=== PATIENT | male | born 1955 | race Caucasian/White ===

== ENCOUNTER 2017-07-30 09:58 | Outpatient (CLI) | payer BC ==
[2017-07-30 17:58] LABS: BASOPHILS # (AUTO) 0.1 10^3/uL (0.0-0.1); BASOPHILS % (AUTO) 0.9 %; EOSINOPHILS # (AUTO) 0.2 10^3/uL (0.0-0.7); EOSINOPHILS % (AUTO) 1.9 %; HCT - HEMATOCRIT 47.5 % (42.0-52.0); HGB - HEMOGLOBIN 15.8 g/dL (14.0-18.0); LYMPHOCYTES # (AUTO) 4.1 10^3/uL (1.5-3.5); LYMPHOCYTES % (AUTO) 41.1 %; MEAN CORPUSCULAR HEMOGLOBIN 32.3 pg (27.0-31.0); MEAN CORPUSCULAR HGB CONC 33.2 g/dL (32.0-36.0); MEAN CORPUSCULAR VOLUME 97.3 fL (80.0-94.0); MEAN PLATELET VOLUME 8.3 fL (7.4-11.4); MONOCYTES # (AUTO) 0.7 10^3/uL (0.0-1.0); NEUTROPHILS # (AUTO) 4.9 10^3/uL (1.5-6.6); NEUTROPHILS % (AUTO) 49.1 %; RED BLOOD COUNT 4.88 10^6/uL (4.70-6.10); UNCORRECTED WHITE BLOOD COUNT 9.9 x10^3/uL; WHITE BLOOD COUNT 9.9 x10^3/uL (4.8-10.8)
[2017-07-30 18:20] LABS: ALBUMIN/GLOBULIN RATIO 1.3 (1.0-2.2); BILIRUBIN,TOTAL 0.5 mg/dL (0.2-1.0); BUN - BLOOD UREA NITROGEN 12 mg/dL (6-20); CALCIUM 9.3 mg/dL (8.5-10.3); CARBON DIOXIDE - CO2 24 mmol/L (21-32); CHLORIDE 106 mmol/L (101-111); CHOL/HDL RATIO 5.2 (<5.0); CHOLESTEROL 230 mg/dL; CREATININE 0.7 mg/dL (0.6-1.2); GFR - MDRD 115 (>89); GLUCOSE 105 mg/dL (70-100); HDL CHOLESTEROL 44 mg/dL; LDL/HDL RATIO 3.7 (<3.6); POTASSIUM 4.6 mmol/L (3.5-5.0); SODIUM 136 mmol/L (135-145); TOTAL PROTEIN 7.1 g/dL (6.7-8.2); TRIGLYCERIDES 110 mg/dL; VLDL CHOLESTEROL 22 mg/dL
== END 2017-07-30 09:59 | disposition home or self-care (01) ==
LOC: LAB.F 09:58
PROVIDERS: ATTEND Internal Medicine
DX: I25.10 Atherosclerotic heart disease of native coronary artery without angina pectoris (principal); E78.00 Pure hypercholesterolemia, unspecified
CPT/HCPCS: 36415; 80053; 80061; 84443; 85025

== ENCOUNTER 2017-10-21 14:01 | Outpatient (CLI) | payer BC ==
--- NOTE | 2017-10-21 16:25 | MRI Report ---
EXAM MRA BRAIN EXAM DATE: 10/21/2017 03:41 PM. CLINICAL HISTORY: Cerebral aneurysm, follow-up. COMPARISON: None. TECHNIQUE: Multiplanar, multisequence MRA sequences of the brain were performed. Other: None. Post-pr ocessing: Multiplanar 3D MIP reconstructions. IV Contrast: None. Findings: Relevant images are indicated (image number, series number). Left ICA: Patent including the MCA, DELANEY distribution. Right ICA: Patent including MCA, DELANEY distribution. Posterior circulation: Patent distal bilateral vertebral arteries, basilar artery, patent bilateral P CA distribution. Prominent right side, smaller left posterior communicating artery. Impressions: 1. Patent major arteries of the brain, with normal anatomical variability as described. No aneurysm, dissection, stenosis, AVM. Patient has reported history of aneurysm, none seen, no prior exams for co mparison. If prior exams do become available, an addendum can be added. [facility] Referring Provider Line: [phone] SITE ID: [id number]
== END 2017-10-21 14:02 | disposition home or self-care (01) ==
LOC: DI 14:01
PROVIDERS: ATTEND Physician Assistant Medical
DX: I67.1 Cerebral aneurysm, nonruptured (principal)
CPT/HCPCS: 70544

== ENCOUNTER 2019-02-10 11:25 | Outpatient (CLI) | payer BC ==
[2019-02-10 17:40] LABS: BASOPHILS # (AUTO) 0.1 10^3/uL (0.0-0.1); BASOPHILS % (AUTO) 1.2 %; EOSINOPHILS # (AUTO) 0.1 10^3/uL (0.0-0.7); HGB - HEMOGLOBIN 15.7 g/dL (14.0-18.0); LYMPHOCYTES # (AUTO) 3.4 10^3/uL (1.5-3.5); LYMPHOCYTES % (AUTO) 47.4 %; MEAN CORPUSCULAR HEMOGLOBIN 34.9 pg (27.0-31.0); MEAN CORPUSCULAR HGB CONC 33.7 g/dL (32.0-36.0); MEAN CORPUSCULAR VOLUME 103.7 fL (80.0-94.0); MEAN PLATELET VOLUME 8.8 fL (7.4-11.4); MONOCYTES # (AUTO) 0.5 10^3/uL (0.0-1.0); MONOCYTES % (AUTO) 6.3 %; NEUTROPHILS # (AUTO) 3.1 10^3/uL (1.5-6.6); NEUTROPHILS % (AUTO) 43.1 %; PLT - PLATELET COUNT 193 10^3/uL (130-450); RED CELL DISTRIBUTION WIDTH 13.9 % (12.0-15.0); WHITE BLOOD COUNT 7.3 x10^3/uL (4.8-10.8)
[2019-02-10 18:00] LABS: ALBUMIN 3.6 g/dL (3.2-5.5); ALBUMIN/GLOBULIN RATIO 1.1 (1.0-2.2); ALKALINE PHOSPHATASE 65 IU/L (42-121); ALT ALANINE AMINOTRANSFERASE 16 IU/L (10-60); AST ASPARTATE AMINOTRANSFERASE 22 IU/L (10-42); BILIRUBIN,TOTAL 0.5 mg/dL (0.2-1.0); BUN - BLOOD UREA NITROGEN 7 mg/dL (6-20); CALCIUM 8.4 mg/dL (8.5-10.3); CARBON DIOXIDE - CO2 24 mmol/L (21-32); CHLORIDE 108 mmol/L (101-111); CHOL/HDL RATIO 5.4 (<5.0); CHOLESTEROL 223 mg/dL; CREATININE 0.7 mg/dL (0.6-1.2); GFR - MDRD 115 (>89); GLUCOSE 103 mg/dL (70-100); HDL CHOLESTEROL 41 mg/dL; LDL CHOLESTEROL,CALCULATED 146 mg/dL; LDL/HDL RATIO 3.6 (<3.6); SODIUM 141 mmol/L (135-145); TOTAL PROTEIN 6.9 g/dL (6.7-8.2); VLDL CHOLESTEROL 36 mg/dL
== END 2019-02-10 11:26 | disposition home or self-care (01) ==
LOC: LAB.F 11:25
PROVIDERS: ATTEND Physician Assistant Medical
DX: E78.00 Pure hypercholesterolemia, unspecified (principal); Z51.81 Encounter for therapeutic drug level monitoring
CPT/HCPCS: 36415; 80053; 80061; 83721; 85025

== ENCOUNTER 2019-04-19 14:44 | Emergency (ER) | payer BC ==
[2019-04-19 14:54] VITALS: BP 165/85
--- NOTE | 2019-04-19 16:11 | ED Physician Documentation ---
PD HPI SKIN - Stated complaint Stated Complaint: BACK WOUND - Chief complaint Chief Complaint: Wound - History obtained from History obtained from: Patient - History of Present Illness Timing - onset: Last night Timing - details: Abrupt onset (he awoke with blood streaks on back of his tshirt. In mirror, he sees a small red spot on back but is in location to not be able to see it well. Concerned about the wound/cause for bleeding. Unable to get appt with PMD.) Location: Back Quality / character: Discolored (red). No: Itchy, Painful Associated symptoms: No: Fever, Myalgias Similar symptoms before: Has not had sx before Review of Systems Musculoskeletal: denies: Neck pain, Back pain PD PAST MEDICAL HISTORY - Past Medical History Cardiovascular: None Respiratory: None Neuro: None Endocrine/Autoimmune: None - Allergies Allergies/Adverse Reactions: Allergies Allergy/AdvReac Type Severity Reaction Status Date / Time No Known Drug Allergies Allergy Verified 04/19/19 14:53 PD ED PE NORMAL - Vitals Vital signs reviewed: Yes - General General: Alert and oriented X 3, No acute distress, Well developed/nourished - Derm Derm: Other (left scapular area has small skin lesion with mild local pinkness/redness, and some inflammation. No ulceration nor pigmentation of the skin. There is small clot on skin and when I brush it, there is drip venous oozing c/w small varicosity. No induration nor fluctuance. ) Results - Vitals Vitals: Vital Signs - 24 hr 04/19/19 14:51 Temperature 36.5 C Heart Rate 70 Respiratory 18 Rate Blood Pressure 165/85 H O2 Saturation 100 Oxygen O2 Source Room air PD MEDICAL DECISION MAKING - ED course Complexity details: considered differential (small area of some redness/ inflammation and had vein bleeding at that spot. No ulcerations nor pigment changes. Seems like inflammed varicosity or may have had small tag or such pull off. Does not look worrisome to need biopsy. Local injection with lido/epi and then silver nitrate stick and bleeding stopped. Cautioned him to have it looked at for healing in 1-2 weeks, and if still looks red/unusual skin, then consider biopsy.), d/w patient Departure - Departure Disposition: 01 Home, Self Care Clinical Impression: Skin lesion of back Condition: Stable Record reviewed to determine appropriate education?: Yes Comments: This looks like a small area of skin inflammation and then there was a small blood vessel underneath (like a varicosity or dilated blood vessel). It does not look like a worrisome lesion and there is no obvious sign of significant infection. I would just clean it with normal showers. You could use some ointment on there once or twice daily to keep it from being dry and hard. Recheck if is not healed over within a week or 2. Discharge Date/Time: 04/19/19 16:32
== END 2019-04-19 16:32 | disposition home or self-care (01) ==
LOC: ED 14:44
DX: L98.9 Disorder of the skin and subcutaneous tissue, unspecified (principal)
CPT/HCPCS: 99282

== ENCOUNTER 2020-03-13 16:49 | Emergency (ER) | payer BC ==
[2020-03-13 17:42] LABS: BASOPHILS # (AUTO) 0.1 10^3/uL (0.0-0.1); BASOPHILS % (AUTO) 0.7 %; EOSINOPHILS # (AUTO) 0.1 10^3/uL (0.0-0.7); EOSINOPHILS % (AUTO) 1.5 %; HGB - HEMOGLOBIN 14.9 g/dL (14.0-18.0); LYMPHOCYTES # (AUTO) 3.7 10^3/uL (1.5-3.5); LYMPHOCYTES % (AUTO) 40.8 %; MEAN CORPUSCULAR HEMOGLOBIN 33.7 pg (27.0-31.0); MEAN CORPUSCULAR HGB CONC 33.3 g/dL (32.0-36.0); MEAN CORPUSCULAR VOLUME 101.1 fL (80.0-94.0); MEAN PLATELET VOLUME 9.7 fL (7.4-11.4); MONOCYTES # (AUTO) 0.5 10^3/uL (0.0-1.0); MONOCYTES % (AUTO) 5.9 %; NEUTROPHILS # (AUTO) 4.6 10^3/uL (1.5-6.6); NEUTROPHILS % (AUTO) 50.6 %; PLT - PLATELET COUNT 180 10^3/uL (130-450); RED BLOOD COUNT 4.42 10^6/uL (4.70-6.10); RED CELL DISTRIBUTION WIDTH 13.2 % (12.0-15.0); WHITE BLOOD COUNT 9.2 x10^3/uL (4.8-10.8)
--- NOTE | 2020-03-13 17:46 | ED Physician Documentation ---
History of Present Illness - Stated complaint Stated Complaint: CP/LIGHTHEADED - Chief complaint Chief Complaint: Cardiac - History obtained from History obtained from: Patient - History of Present Illness Timing: How many weeks ago (1) Pain level max: 3 Pain level now: 3 - Additonal information Additional information: 64-year-old male presents to the emergency department with chest pain intermittently over the past week. He states sometimes it lasts for 10 to 15 seconds, other x2 to 3 minutes. Described as a tightness in his chest. He states that he has had a coronary angiogram in [facility] approximately 7 years ago that showed a 40% stenosis of the LAD. He followed up with a control panel assembler in [place] approximately 5 years ago, but has not seen anyone since that time. Nothing makes it better or worse. No change with exertion. No change with breathing. Review of Systems Ten Systems: 10 systems reviewed and negative Constitutional: denies: Fever, Chills Throat: denies: Sore throat Respiratory: denies: Cough GI: denies: Nausea, Vomiting Skin: denies: Rash Musculoskeletal: denies: Neck pain, Back pain Neurologic: denies: Headache PD PAST MEDICAL HISTORY - Past Medical History Cardiovascular: None Respiratory: None Neuro: None Endocrine/Autoimmune: None - Present Medications Home Medications: Ambulatory Orders Medication Instructions Recorded Confirmed diltiaZEM CD [Cardizem Cd] 120 mg PO DAILY #30 capsule 03/13/20 - Allergies Allergies/Adverse Reactions: Allergies Allergy/AdvReac Type Severity Reaction Status Date / Time No Known Drug Allergies Allergy Verified 04/19/19 14:53 - Social History Does the pt smoke?: No Smoking Status: Never smoker PD ED PE NORMAL - Vitals Vital signs reviewed: Yes - General General: Alert and oriented X 3, No acute distress, Well developed/nourished - HEENT HEENT: PERRL, Moist mucous membranes - Neck Neck: Supple, no meningeal sign - Cardiac Cardiac: RRR, No murmur, Strong equal pulses - Respiratory Respiratory: No respiratory distress, Clear bilaterally - Abdomen Abdomen: Soft, Non tender, Non distended - Derm Derm: Warm and dry - Neuro Neuro: Alert and oriented X 3 - Psych Psych: Normal mood, Normal affect Results - Vitals Vitals: Vital Signs - 24 hr 03/13/20 03/13/20 03/13/20 16:57 18:06 18:46 Temperature 36.4 C L 36.6 C Heart Rate 88 73 83 Respiratory 16 18 15 Rate Blood Pressure 140/86 H 132/81 H 134/80 H O2 Saturation 99 95 96 Oxygen O2 Source Room air - EKG (time done) 1650 Rate: Rate (enter#) (84) Rhythm: NSR [place]: Normal Intervals: Normal UT QRS: Normal Ischemia: Normal ST segments - Labs Labs: Laboratory Tests 03/13/20 03/13/20 03/13/20 17:34 17:34 17:34 WBC 9.2 RBC 4.42 L Hgb 14.9 Hct 44.7 MCV 101.1 H MCH 33.7 H MCHC 33.3 RDW 13.2 Plt Count 180 MPV 9.7 Neut # (Auto) 4.6 Lymph # (Auto) 3.7 H [place] # (Auto) 0.5 Eos # (Auto) 0.1 Baso # (Auto) 0.1 Absolute Nucleated RBC 0.00 Nucleated RBC % 0.0 Sodium 139 Potassium 3.6 Chloride 105 Carbon Dioxide 25 Anion Gap 9.0 BUN 10 Creatinine 0.6 Estimated GFR (MDRD) 137 Glucose 119 H Calcium 9.0 Total Bilirubin 0.4 AST 20 ALT 16 Alkaline Phosphatase 71 Troponin I High Sens < 2.3 L Total Protein 7.1 Albumin 3.7 Globulin 3.4 Albumin/Globulin Ratio 1.1 Lipase 34 - Rads (name of study) cxr Radiology: Prelim report reviewed, EMP read contemporaneously, See rad report (No acute disease) PD MEDICAL DECISION MAKING - ED course Complexity details: reviewed results, re-evaluated patient, considered differential (No ST elevation PR, no aortic dissection, no PE, no tension pneumothorax, no aortic aneurysm), d/w patient ED course: Patient symptoms were reproduced when he had a short run of paroxysmal atrial flutter. This terminated spontaneously. Likely that this is the cause of his symptoms. No evidence of acute coronary syndrome. No evidence of pulmonary embolus. We will start him on low-dose Cardizem. We will have him follow-up with cardiology for further care. Patient is well-appearing, nontoxic. Afebrile. Patient counseled regarding signs and symptoms for which I believe and urgent re-evaluation would be necessary. Patient with good understanding of and agreement to plan and is comfortable going home at this time This document was made in part using voice recognition software. While efforts are made to proofread this document, sound alike and grammatical errors may occur. Departure - Departure Disposition: 01 Home, Self Care Clinical Impression: Atrial flutter Qualifiers: Atrial flutter type: unspecified Qualified Code(s): I48.92 - Unspecified atrial flutter Condition: Good Instructions: ED Paroxysmal Atrial Flutter Follow-Up: Leila Hardy MD [Provider Admit Priv/Credential] - [facility] [Provider Group] [facility] [Provider Group] Prescriptions: diltiaZEM CD [Cardizem Cd] 120 mg PO DAILY #30 capsule Comments: Start on the Cardizem daily. Return if you worsen. Follow-up with your doctor for further care. You appear to have paroxysmal atrial flutter. You should continue on a baby aspirin daily as well. Discharge Date/Time: 03/13/20 18:57
[2020-03-13 17:55] LABS: ALBUMIN 3.7 g/dL (3.2-5.5); ALBUMIN/GLOBULIN RATIO 1.1 (1.0-2.2); BILIRUBIN,TOTAL 0.4 mg/dL (0.2-1.0); CREATININE 0.6 mg/dL (0.6-1.2); TOTAL PROTEIN 7.1 g/dL (6.7-8.2)
--- NOTE | 2020-03-13 18:19 | XRAY Report ---
Reason: Chest Pain Procedure Date: 03/13/2020 Accession Number: [id number] / [id number] Procedure: XR - Chest 1 View X-Ray CPT Code: 16996 Final Report FULL RESULT: PROCEDURE: Chest 1 View X-Ray INDICATIONS: Chest Pain TECHNIQUE: One view of the chest was acquired. COMPARISON: None FINDINGS: Surgical changes and devices: None. Lungs and pleura: No pleural effusions or pneumothorax. Lungs are clear. Mediastinum: Mediastinal contours appear normal. Heart size is normal. Bones and chest wall: No suspicious bony lesions. Overlying soft tissues appear unremarkable. IMPRESSION: No acute pulmonary process. Reviewed by: Jocelin Krishnamurthy MD on 03/13/2020 6:15 PM PDT Approved by: Jocelin Krishnamurthy MD on 03/13/2020 6:15 PM PDT Station ID: [id number]
[2020-03-13 18:47] VITALS: BP 134/80
== END 2020-03-13 18:57 | disposition home or self-care (01) ==
LOC: ED 16:49
DX: I48.92 Unspecified atrial flutter (principal)
CPT/HCPCS: 36415; 71045; 80053; 83690; 84484; 85025; 93005; 99284

== ENCOUNTER 2020-12-11 07:00 | Outpatient (CLI) | payer BC ==
--- NOTE | 2020-12-11 16:38 | XRAY Report ---
PROCEDURE: Ribs w/PA Chest RT INDICATIONS: ANTERIOR CHEST WALL PAIN TECHNIQUE: 3 views of the right ribs were acquired, along with a single view chest. COMPARISON: Chest x-ray 03/13/2020 FINDINGS: Surgical changes and devices: None. Bones and chest wall: No fractures or dislocations. No suspicious bony lesions. Overlying soft tis sues appear unremarkable. Lungs and pleura: No pleural effusions or pneumothorax. Lungs appear clear. Mediastinum: Mediastinal contours appear normal. Heart size is normal. IMPRESSION: No visualized acute fracture or dislocation. However, occult injury cannot be excluded. Recommend angy rt interval imaging follow-up in 7-10 days as clinically indicated for additional evaluation. Reviewed by: Jocelin Krishnamurthy MD on 12/11/2020 4:37 PM PST Approved by: Jocelin Krishnamurthy MD on 12/11/2020 4:37 PM PST Station ID: [id number]
== END 2020-12-11 23:59 | disposition home or self-care (01) ==
LOC: DI.S 07:00
PROVIDERS: ATTEND Physician Assistant Medical
DX: R07.89 Other chest pain (principal)

== ENCOUNTER 2024-02-09 20:40 | Outpatient (CLI) | payer MEDICARE, OTHER | END 2024-02-09 23:59 | disposition critical access hospital (66) | LOC: EMS 20:40 | DX: R55 Syncope and collapse (principal); S00.03XA Contusion of scalp, initial encounter; W18.39XA Other fall on same level, initial encounter; Y92.000 Kitchen of unspecified non-institutional (private) residence as the place of occurrence of the external cause | CPT/HCPCS: A0425; A0429 ==

== ENCOUNTER 2024-02-09 21:08 | Inpatient (IN) | payer MEDICARE, OTHER ==
[2024-02-09 21:50] LABS: BASOPHILS # (AUTO) 0.1 10^3/uL (0.0-0.1); BASOPHILS % (AUTO) 0.7 %; EOSINOPHILS # (AUTO) 0.1 10^3/uL (0.0-0.7); EOSINOPHILS % (AUTO) 0.6 %; HCT - HEMATOCRIT 43.3 % (42.0-52.0); HGB - HEMOGLOBIN 15.1 g/dL (14.0-18.0); LYMPHOCYTES # (AUTO) 3.2 10^3/uL (1.5-3.5); LYMPHOCYTES % (AUTO) 34.4 %; MEAN CORPUSCULAR HEMOGLOBIN 36.5 pg (27.0-31.0); MEAN CORPUSCULAR HGB CONC 34.9 g/dL (32.0-36.0); MEAN CORPUSCULAR VOLUME 104.6 fL (80.0-94.0); MEAN PLATELET VOLUME 10.5 fL (7.4-11.4); MONOCYTES # (AUTO) 0.9 10^3/uL (0.0-1.0); MONOCYTES % (AUTO) 9.2 %; NEUTROPHILS # (AUTO) 5.1 10^3/uL (1.5-6.6); NEUTROPHILS % (AUTO) 54.6 %; PLT - PLATELET COUNT 158 10^3/uL (130-450); RED BLOOD COUNT 4.14 10^6/uL (4.70-6.10); RED CELL DISTRIBUTION WIDTH 13.5 % (12.0-15.0); WHITE BLOOD COUNT 9.4 x10^3/uL (4.8-10.8)
[2024-02-09 22:05] LABS: ALBUMIN 4.3 g/dL (3.2-5.5); ALBUMIN/GLOBULIN RATIO 1.5 (1.0-2.2); BILIRUBIN,TOTAL 0.7 mg/dL (0.2-1.0); CALCIUM 9.6 mg/dL (8.5-10.3); CREATININE 0.7 mg/dL (0.6-1.3); MAGNESIUM 1.6 mg/dL (1.7-2.3); POTASSIUM 4.1 mmol/L (3.5-4.5); TOTAL PROTEIN 7.2 g/dL (6.4-8.9)
--- NOTE | 2024-02-09 22:12 | XRAY Report ---
PROCEDURE: Chest 1V INDICATIONS: syncope TECHNIQUE: One view of the chest was acquired. COMPARISON: Chest x-ray 03/13/2020 FINDINGS: Surgical changes and devices: None. Lungs and pleura: No pleural effusions or pneumothorax. Lungs are clear. Mediastinum: Mediastinal contours appear normal. Heart size is normal. Bones and chest wall: No suspicious bony lesions. Overlying soft tissues appear unremarkable. IMPRESSION: No acute cardiopulmonary process. Reviewed by: Jocelin Krishnamurthy MD on 02/09/2024 10:10 PM PDT Approved by: Jocelin Krishnamurthy MD on 02/09/2024 10:10 PM PDT Station ID: [id number]
--- NOTE | 2024-02-09 22:13 | CT Report ---
PROCEDURE: Head WO INDICATIONS: syncope/head injury TECHNIQUE: Noncontrast 4.5 mm thick angled axial sections acquired from the foramen magnum to the vertex. For r adiation dose reduction, the following was used: automated exposure control, adjustment of mA and/or kV according to patient size. COMPARISON: MRA brain 10/21/2017 FINDINGS: Image quality: Excellent. CSF spaces: Basal cisterns are patent. No extra-axial fluid collections. Ventricles are normal in size and shape. Brain: No midline shift. No intracranial masses or hemorrhage. Mcfarland-white matter interface is norm al. Skull and face: Calvarium and visualized facial bones are intact, without suspicious lesions. Sinuses: Visualized sinuses and mastoids are clear. IMPRESSION: No acute intracranial pathology. Reviewed by: Jocelin Krishnamurthy MD on 02/09/2024 10:11 PM PDT Approved by: Jocelin Krishnamurthy MD on 02/09/2024 10:11 PM PDT Station ID: [id number]
[2024-02-09] MEDS: SODIUM CHLORIDE 0.9% 1,000 ML IV STA (22:18)
[2024-02-09] MEDS: MAGNESIUM SULFATE 2 GRAM 2 GM/50 ML BAG IV ONE (22:34)
--- NOTE | 2024-02-09 22:48 | ED Physician Documentation ---
History of Present Illness - Stated complaint Stated Complaint: SYNCOPE - Chief complaint Chief Complaint: Cardiac - History obtained from History obtained from: Patient - Additonal information Additional information: Patient is a 68-year-old male with a history of atrial fibrillation presenting for evaluation of a syncopal episode. Patient states his evening he was walking in the hallway towards his laundry room and started to feel hot like a hot flash and went to take off his flannel shirt and get up in the laundry room. He then was turning around when he had a reported syncopal episode.The syncopal episode was not witnessed by anyone at home but he is concerned that he may have been out for an hour due to last remembering the start of a TV show and then waking up in the show was almost over. He did hit his head. He does not take a blood thinner. He does have a history of atrial fibrillation but had an ablation done for 5 years ago and has been in sinus rhythm since. He follows with a purchasing coordinator in [place] and had a cardiac catheterization in June which did not show any Vessel disease requiring stenting. Review of Systems Constitutional: denies: Fever Cardiac: denies: Chest pain / pressure, Palpitations Respiratory: denies: Dyspnea GI: denies: Abdominal Pain : denies: Dysuria Neurologic: reports: Syncope, Head injury PD PAST MEDICAL HISTORY - Past Medical History Cardiovascular: None Respiratory: None Neuro: None Endocrine/Autoimmune: None - Present Medications Home Medications: Ambulatory Orders Medication Instructions Recorded Confirmed diltiaZEM CD [Cardizem Cd] 120 mg PO DAILY #30 capsule 03/13/20 - Allergies Allergies/Adverse Reactions: Allergies Allergy/AdvReac Type Severity Reaction Status Date / Time No Known Drug Allergies Allergy Verified 02/09/24 21:20 - Social History Does the pt smoke?: No Smoking Status: Never smoker Does the pt drink ETOH?: Yes PD ED PE NORMAL - General General: Alert and oriented X 3, No acute distress, Well developed/nourished - HEENT HEENT: Atraumatic, Moist mucous membranes, Pharynx benign - Neck Neck: Supple, no meningeal sign, No bony TTP - Cardiac Cardiac: RRR, Strong equal pulses - Respiratory Respiratory: No respiratory distress, Clear bilaterally - Abdomen Abdomen: Normal bowel sounds, Soft, Non tender, Non distended - Derm Derm: Warm and dry - Extremities Extremities: No edema, No calf tenderness / cord - Neuro Neuro: Alert and oriented X 3, 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, No motor deficit, No sensory deficit, Normal speech Eye Opening: Spontaneous Motor: Obeys Commands Verbal: Oriented GCS Score: 15 Results - Vitals Vitals: Vital Signs - 24 hr 02/09/24 02/09/24 02/09/24 21:16 22:27 22:29 Temperature 36.8 C Heart Rate 80 74 Heart Rate [ 90 Sitting] Heart Rate [ 84 Standing] Heart Rate [ 78 Supine] Respiratory 16 16 Rate Blood Pressure 174/99 H 134/85 H Blood Pressure 137/86 H [Sitting] Blood Pressure 134/85 H [Standing] Blood Pressure 142/78 H [Supine] O2 Saturation 96 99 02/09/24 02/09/24 02/09/24 22:30 23:00 23:30 Temperature Heart Rate 72 76 81 Heart Rate [ Sitting] Heart Rate [ Standing] Heart Rate [ Supine] Respiratory 18 16 16 Rate Blood Pressure 136/86 H 159/97 H 148/82 H Blood Pressure [Sitting] Blood Pressure [Standing] Blood Pressure [Supine] O2 Saturation 98 96 94 02/10/24 02/10/24 00:00 01:00 Temperature Heart Rate 77 76 Heart Rate [ Sitting] Heart Rate [ Standing] Heart Rate [ Supine] Respiratory 16 19 Rate Blood Pressure 144/79 H 141/79 H Blood Pressure [Sitting] Blood Pressure [Standing] Blood Pressure [Supine] O2 Saturation 93 94 Oxygen O2 Source Room air - EKG (time done) 2134 EKG releavant findings:: EKG personally interpreted by author of this note. Relevant findings are: Rate 77, normal sinus rhythm, no STEMI, QTc 427 - Labs Labs: Laboratory Tests 02/09/24 02/09/24 21:35 21:35 WBC 9.4 RBC 4.14 L Hgb 15.1 Hct 43.3 MCV 104.6 H MCH 36.5 H MCHC 34.9 RDW 13.5 Plt Count 158 MPV 10.5 Neut # (Auto) 5.1 Lymph # (Auto) 3.2 [place] # (Auto) 0.9 Eos # (Auto) 0.1 Baso # (Auto) 0.1 Absolute Nucleated RBC 0.00 Nucleated RBC % 0.0 Sodium 139 Potassium 4.1 Chloride 107 Carbon Dioxide 23 Anion Gap 9.0 BUN 13 Creatinine 0.7 Estimated GFR (MDRD) 113 Glucose 103 Calcium 9.6 Magnesium 1.6 L Total Bilirubin 0.7 AST 25 ALT 17 Alkaline Phosphatase 67 Troponin I High Sens 3.0 Total Protein 7.2 Albumin 4.3 Globulin 2.9 Albumin/Globulin Ratio 1.5 Lipase 32 PD Medical Decision Making - ED course Complexity details: reviewed results, re-evaluated patient, d/w patient, d/w family ED course: Patient is a 68-year-old male presenting for evaluation of a syncopal episode and head injury. Normal neuroexam. Does not take a blood thinner. Vital signs are stable. CT head was obtained due to head injury and concern for prolonged syncope. No signs of intracranial hemorrhage. EKG demonstrates normal sinus rhythm. No STEMI. CBC, chemistries, troponin were obtained and reviewed and without significant findings other than a magnesium of 1.6. IV replacement was ordered. While patient was being evaluated he had an episode of bradycardia with heart rate down into the 30s and started feeling lightheaded and nauseous. He recovered without intervention. On review of the rhythm strip this appears to be sinus bradycardia and not a heart block. Discussed with on-call cardiology who recommends admission for telemetry. Does not see a reason for transfer at this time. 2257 - Son is at the bedside with his father and father gives permission to go over information with them both. 2306 - D/W Dr. Whitfield (Cardiology, manager action for Dr. Mcnair) - Recommends admission to telemetry here at our hospital. He is aware that we do not have any cardiology capabilities but states that is this was just an episode of bradycardia and was not a heart block then patient does not require transfer at this time. 1237 - Discussed with admitting hospitalist, Dr. Jasmine. Departure - Departure Disposition: ED Place in Observation Clinical Impression: Syncope, Head injury, Hypomagnesemia, Symptomatic bradycardia Condition: Stable Discharge Date/Time: 02/10/24 01:30
[2024-02-10] MEDS ORDERED: HYDROcod/ACETAM 5/325 MG TABLET PO PRN (01:04)
[2024-02-10] MEDS ORDERED: ONDANSETRON 4 MG/2 ML VIAL IVP PRN (01:04)
[2024-02-10] MEDS ORDERED: SODIUM CHLORIDE FLUSH 0.9% 10 ML SYRINGE IVP PRN (01:04)
[2024-02-10] MEDS ORDERED: ACETAMINOPHEN 325 MG TABLET PO PRN (01:04)
[2024-02-10] MEDS ORDERED: MAGNESIUM SULFATE 2 GRAM 2 GM/50 ML BAG IV ONE (01:08)
--- NOTE | 2024-02-10 01:16 | HISTORY & PHYSICAL EXAMINATION ---
Chief Complaint - Chief Complaint Chief Complaint: Syncope History of Present Illness - Admitted From Admitted From:: Home - History Obtained From Records Reviewed: Yes History obtained from: Patient and EMR and ED team Exam Limitations: None - History of Present Illness HPI Comment/Other: Patient is a 68-year-old male with a history of atrial fibrillation presenting for evaluation of a syncopal episode. Patient states his evening he was walking in the hallway towards his laundry room and started to feel hot like a hot flash and went to take off his flannel shirt and get up in the laundry room. He then was turning around when he had a reported syncopal episode.The syncopal episode was not witnessed by anyone at home but he is concerned that he may have been out for an hour due to last remembering the start of a TV show and then waking up in the show was almost over. He did hit his head. He does not take a blood thinner. He does have a history of atrial fibrillation but had an ablation done for 5 years ago and has been in sinus rhythm since. He follows with a spinneret person in [place] and had a cardiac catheterization in June which did not show any Vessel disease requiring stenting. 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 , states had had similar episode around 5 years ago after which he had ablation done, does complaint of nack pain and soreness found to have low Mg Very pleasant patient with no other complaints wants to sleep for few hours as feeling very tired, EKG review, CXR and labs reviewed he has been informed that I live in [place] and this is a telemedicine admission verbal consent obtained nd he is aware that he will be seen by my colleague in am History - Past Medical History Cardiovascular: reports: None Respiratory: reports: None Neuro: reports: None Endocrine/Autoimmune: reports: None MRSA Hx?: No Meds/Allgy - Home Medications Home Medications: Ambulatory Orders Medication Instructions Recorded Confirmed diltiaZEM CD [Cardizem Cd] 120 mg PO DAILY #30 capsule 03/13/20 - Allergies Allergies/Adverse Reactions: Allergies Allergy/AdvReac Type Severity Reaction Status Date / Time No Known Drug Allergies Allergy Verified 02/09/24 21:20 Review of Systems - Other Findings Other Findings: 14 system review done and negative except mentioned in HPI Prior Level of Functionality: Independent with ADL Exam - Vital Signs Vital Signs: Vital Signs x48h Temp Pulse Pulse Pulse Pulse Resp BP 02/10/24 00:00 77 16 144/79 H 02/09/24 23:30 81 16 148/82 H 02/09/24 23:00 76 16 159/97 H 02/09/24 22:30 72 18 136/86 H 02/09/24 22:29 90 84 78 02/09/24 22:27 74 16 134/85 H 02/09/24 21:16 36.8 C 80 16 174/99 H BP BP BP Pulse Ox 02/10/24 00:00 93 02/09/24 23:30 94 02/09/24 23:00 96 02/09/24 22:30 98 02/09/24 22:29 137/86 H 134/85 H 142/78 H 02/09/24 22:27 99 02/09/24 21:16 96 - Physical Exam General Appearance: positive: No acute distress Eyes Bilateral: positive: Normal inspection ENT: positive: Pharynx nml Neck: positive: Thyroid nml Respiratory: positive: Chest non-tender, Breath sounds nml Cardiovascular: positive: Regular rate & rhythm Back: positive: Nml inspection Skin: positive: Color nml Neurologic/Psychiatric: positive: Oriented x3, CN's nml (2-12) Sepsis Event Note (H) - Evaluation Current Stage of Sepsis: Ruled out Conclusion/Plan - Problem List (1) Head injury Conclusion/Plan: No open wound monitor for now pain meds (2) Syncope Conclusion/Plan: Likely vasovagal did have some bradycardia which as per Dr Dove was all sinus rafaela cardia Will place back on Telemetry Will likely need echo and carotid usg CT scan head is negative Will likely need night monitor as out patient Magneisum has been replaced EArly dc anitipated and follow up with Dr Cash his primar Cards at [place] on dc SCD for dct prophylaxis Full code Totalt time spent 55 mints - Lab Results Fish Bones: 02/09/24 21:35 02/09/24 21:35 - Diagnostic Imaging Results Diagnostic Imaging Results: positive: Final report reviewed - EKG Results EKG Comparison: Changed from prior EKG, Old EKG unavailable
[2024-02-10] MEDS: KETOROLAC 30 MG/ML VIAL IVP STA (02:04)
[2024-02-10] MEDS: SODIUM CHLORIDE FLUSH 0.9% 10 ML SYRINGE IVP SCH (02:05)
[2024-02-10] MEDS: SODIUM CHLORIDE 0.9% 1,000 ML IV SCH (02:11)
[2024-02-10 02:13] LABS: CHOL/HDL RATIO 5.3 (<5.0); CHOLESTEROL 231 mg/dL; HDL CHOLESTEROL 44 mg/dL; LDL CHOLESTEROL,CALCULATED 163 mg/dL; LDL/HDL RATIO 3.7 (<3.6); TRIGLYCERIDES 118 mg/dL (48-352); VLDL CHOLESTEROL 24 mg/dL
[2024-02-10 05:38] LABS: BASOPHILS # (AUTO) 0.1 10^3/uL (0.0-0.1); BASOPHILS % (AUTO) 0.7 %; EOSINOPHILS # (AUTO) 0.1 10^3/uL (0.0-0.7); EOSINOPHILS % (AUTO) 0.9 %; HCT - HEMATOCRIT 40.7 % (42.0-52.0); HGB - HEMOGLOBIN 13.8 g/dL (14.0-18.0); LYMPHOCYTES # (AUTO) 3.3 10^3/uL (1.5-3.5); LYMPHOCYTES % (AUTO) 39.4 %; MEAN CORPUSCULAR HEMOGLOBIN 35.8 pg (27.0-31.0); MEAN CORPUSCULAR HGB CONC 33.9 g/dL (32.0-36.0); MEAN CORPUSCULAR VOLUME 105.4 fL (80.0-94.0); MONOCYTES # (AUTO) 0.8 10^3/uL (0.0-1.0); NEUTROPHILS # (AUTO) 4.2 10^3/uL (1.5-6.6); NEUTROPHILS % (AUTO) 49.8 %; PLT - PLATELET COUNT 147 10^3/uL (130-450); RED BLOOD COUNT 3.86 10^6/uL (4.70-6.10); RED CELL DISTRIBUTION WIDTH 13.5 % (12.0-15.0); WHITE BLOOD COUNT 8.5 x10^3/uL (4.8-10.8)
[2024-02-10 05:55] LABS: ALBUMIN 3.5 g/dL (3.2-5.5); ALBUMIN/GLOBULIN RATIO 1.3 (1.0-2.2); BILIRUBIN,TOTAL 0.8 mg/dL (0.2-1.0); CALCIUM 8.3 mg/dL (8.5-10.3); CREATININE 0.7 mg/dL (0.6-1.3); POTASSIUM 3.9 mmol/L (3.5-4.5); TOTAL PROTEIN 6.1 g/dL (6.4-8.9)
--- NOTE | 2024-02-10 10:26 | PHARMACY PROGRESS NOTE ---
- Best Possible Medication History Admit Date and Time: 02/10/24 0105 Processed by: Pharmacy Medications reviewed in ED?: No Medication History completed: Yes Patient Interview: Completed Secondary Source(s): Insurance records As the person ultimately responsible for medication therapy, providers are able to order a medication from an existing home medication list in [facility] via the "Reconcile Routine" prior to Confirmation of that medication by legal support analyst. Such practice is discouraged except when the physician, in their clinical judgment, deems that a medical need exists for a medication without regard to previous use.
[2024-02-10] MEDS: diltiaZEM CD 120 MG CAPSULE PO SCH (10:42)
--- NOTE | 2024-02-10 15:47 | Ultrasound Report ---
PROCEDURE: Carotid Doppler Complete INDICATIONS: syncope TECHNIQUE: Color and pulse Doppler interrogation was performed of both carotid systems, with image documentation and velocity measurements. COMPARISON: None. FINDINGS: Right side: Brachial blood pressure: 110 mm Hg. Common carotid artery peak systolic velocity: 70 cm/sec. Internal carotid artery peak systolic velocity: 69 cm/sec. Internal carotid artery end diastolic velocity: 21 cm/sec. External carotid artery peak systolic velocity: 68 cm/sec. ICA/CCA peak systolic ratio: 0.99 . Mcfarland scale imaging description: Mild atherosclerotic plaque. Percent internal carotid artery stenosis: Less than 50 percent stenosis. Vertebral artery: Flow direction is antegrade. Left side: Brachial blood pressure: 127 mm Hg. Common carotid artery peak systolic velocity: 59 cm/sec. Internal carotid artery peak systolic velocity: 64 cm/sec. Internal carotid artery end diastolic velocity: 19 cm/sec. External carotid artery peak systolic velocity: 75 cm/sec. ICA/CCA peak systolic ratio: 1.1 . Mcfarland scale imaging description: Mild atherosclerotic plaque. Percent internal carotid artery stenosis: Less than 50 percent stenosis. Vertebral artery: Flow direction is antegrade. IMPRESSION: 1. In the right internal carotid artery, there is less than 50 percent stenosis based on peak systoli c velocity criteria. 2. In the left internal carotid artery, there is less than 50 percent stenosis based on peak systolic velocity criteria. 3. Antegrade blood flow within the right vertebral artery. 4. Antegrade blood flow within the left vertebral artery. The estimate of stenosis included in the report of the imaging study was calculated using the [facility]-end orsed standards of carotid artery stenosis. Reviewed by: Sandra Dumont MD on 02/10/2024 3:46 PM PDT Approved by: Sandra Dumont MD on 02/10/2024 3:46 PM PDT Station ID: [id number]
[2024-02-11 05:10] LABS: TROPONIN I HIGH SENSITIVITY 3.7 ng/L (2.3-19.7)
[2024-02-11 05:25] LABS: CALCIUM 9.2 mg/dL (8.5-10.3); CREATININE 0.6 mg/dL (0.6-1.3); MAGNESIUM 1.6 mg/dL (1.7-2.3); POTASSIUM 4.1 mmol/L (3.5-4.5)
--- NOTE | 2024-02-11 19:53 | PROVIDER PROGRESS NOTE ---
Assessment/Plan - Problem List (1) Bradycardia Assessment/Plan: Etiology of bradycardia is not clear. Patient had an episode of significant bradycardia last evening with a heart rate of 20-30 bpm. The rhythm was normal sinus rhythm. There appeared to be no heart block. Discussed with patient's heel sprayer at [facility] (Dr. Mcnair). All AV sonia blocking agents have been discontinued. If patient continues to have episodes of bradycardia/syncope after discontinuing all AV sonia blocking agents, he most likely will need a pacemaker. Discussed above with patient. (2) Syncope Assessment/Plan: Syncope most likely related to bradycardia. Continue to monitor on telemetry. (3) Hypomagesemia Assessment/Plan: Replacement - Current Meds Current Meds: Current Medications Generic Name Dose Route Start Last Admin Trade Name Freq PRN Reason Stop Dose Admin Sodium Chloride 1,000 mls @ 100 mls/hr 02/10/24 02:00 02/11/24 09:26 Normal Saline 0.9% IV Not Given .Q10H SAL Sodium Chloride 10 ml 02/10/24 09:00 02/11/24 10:41 Sodium Chloride Flush 0.9% 10 Ml Syringe IVP 10 ml 0100,0900,1700 SAL Administration - Lab Result Fish Bone Diagrams: 02/10/24 05:25 02/11/24 04:43 Subjective - Subjective Patient Reports: Other (Alert. Denies chest pain, shortness of breath, abdominal pain. Patient had an episode of bradycardia last night that resulted in lightheadedness. He has no other complaints at this time.) Objective Vital Signs: Vital Signs - 24 hr 02/10/24 02/10/24 02/10/24 21:00 22:00 23:30 Temperature 37.1 C 37.0 C Heart Rate [ 58 L Brachial] Heart Rate [ 66 61 Monitoring electrodes] Respiratory 18 18 Rate Blood Pressure 126/77 135/88 H 114/69 [Right Brachial artery] O2 Saturation 97 96 02/11/24 02/11/24 02/11/24 05:51 08:35 14:11 Temperature 36.8 C 37.0 C 36.8 C Heart Rate [ 60 65 Brachial] Heart Rate [ 64 Monitoring electrodes] Respiratory 18 16 16 Rate Blood Pressure 120/73 124/73 124/78 [Right Brachial artery] O2 Saturation 97 96 95 02/11/24 15:55 Temperature 37.1 C Heart Rate [ 62 Brachial] Heart Rate [ Monitoring electrodes] Respiratory 20 Rate Blood Pressure 132/73 H [Right Brachial artery] O2 Saturation 94 Oxygen O2 Source Room air I&O (Last 24 Hrs): Intake and Output Totals x24h 02/09/24 02/10/24 02/11/24 23:59 23:59 23:59 Intake Total 1050 3000 2040 Output Total 175 Balance 1050 2825 2040 General: Alert, Oriented x3, Mild distress Neck: Supple, No JVD Neuro: Alert, Non Focal Cardiovascular: Other (Positive S1-S2 no extra heart sounds.) Respiratory: Other (Good air exchange in all lung brothers no wheezing no crackles) Abdomen: Other (Soft nontender nondistended positive bowel sounds) Extremities: No cyanosis, No edema Skin: No rashes - Results Results: Laboratory Results WBC 8.5 x10^3/uL (4.8-10.8) 02/10/24 05:25 RBC 3.86 10^6/uL (4.70-6.10) L 02/10/24 05:25 Hgb 13.8 g/dL (14.0-18.0) L 02/10/24 05:25 Hct 40.7 % (42.0-52.0) L 02/10/24 05:25 MCV 105.4 fL (80.0-94.0) H 02/10/24 05:25 MCH 35.8 pg (27.0-31.0) H 02/10/24 05:25 MCHC 33.9 g/dL (32.0-36.0) 02/10/24 05:25 RDW 13.5 % (12.0-15.0) 02/10/24 05:25 Plt Count 147 10^3/uL (130-450) 02/10/24 05:25 MPV 10.0 fL (7.4-11.4) 02/10/24 05:25 Neut # (Auto) 4.2 10^3/uL (1.5-6.6) 02/10/24 05:25 Lymph # (Auto) 3.3 10^3/uL (1.5-3.5) 02/10/24 05:25 [place] # (Auto) 0.8 10^3/uL (0.0-1.0) 02/10/24 05:25 Eos # (Auto) 0.1 10^3/uL (0.0-0.7) 02/10/24 05:25 Baso # (Auto) 0.1 10^3/uL (0.0-0.1) 02/10/24 05:25 Absolute Nucleated RBC 0.00 x10^3/uL 02/10/24 05:25 Nucleated RBC % 0.0 /100WBC 02/10/24 05:25 Sodium 136 mmol/L (135-145) 02/11/24 04:43 Potassium 4.1 mmol/L (3.5-4.5) 02/11/24 04:43 Chloride 109 mmol/L (101-111) 02/11/24 04:43 Carbon Dioxide 20 mmol/L (21-32) L 02/11/24 04:43 Anion Gap 7.0 (6-13) 02/11/24 04:43 BUN 11 mg/dL (6-20) 02/11/24 04:43 Creatinine 0.6 mg/dL (0.6-1.3) 02/11/24 04:43 Estimated GFR (MDRD) 135 (>89) 02/11/24 04:43 Glucose 107 mg/dL (74-104) H 02/11/24 04:43 Calcium 9.2 mg/dL (8.5-10.3) 02/11/24 04:43 Phosphorus 3.0 mg/dL (2.5-5.0) 02/11/24 04:43 Magnesium 1.6 mg/dL (1.7-2.3) L 02/11/24 04:43 Total Bilirubin 0.8 mg/dL (0.2-1.0) 02/10/24 05:25 AST 20 IU/L (10-42) 02/10/24 05:25 ALT 14 IU/L (10-60) 02/10/24 05:25 Alkaline Phosphatase 55 IU/L (42-121) 02/10/24 05:25 Troponin I High Sens 3.7 ng/L (2.3-19.7) 02/11/24 04:43 Total Protein 6.1 g/dL (6.4-8.9) L 02/10/24 05:25 Albumin 3.5 g/dL (3.2-5.5) 02/10/24 05:25 Globulin 2.6 g/dL (2.1-4.2) 02/10/24 05:25 Albumin/Globulin Ratio 1.3 (1.0-2.2) 02/10/24 05:25 Triglycerides 118 mg/dL (48-352) 02/10/24 01:24 Cholesterol 231 mg/dL (-200) H 02/10/24 01:24 LDL Cholesterol, Calc 163 mg/dL (-129) H 02/10/24 01:24 VLDL Cholesterol 24 mg/dL 02/10/24 01:24 HDL Cholesterol 44 mg/dL (60-) L 02/10/24 01:24 LDL/HDL Ratio 3.7 (<3.6) 02/10/24 01:24 Cholesterol/HDL Ratio 5.3 (<5.0) 02/10/24 01:24 Lipase 32 U/L (11-82) 02/09/24 21:35 Sepsis Event Note (H) - Evaluation Current Stage of Sepsis: Ruled out
[2024-02-11] MEDS: MAGNESIUM OXIDE 400 MG TABLET PO SCH (21:35)
--- NOTE | 2024-02-12 21:43 | PROVIDER PROGRESS NOTE ---
Assessment/Plan - Problem List (1) Bradycardia Assessment/Plan: Etiology of bradycardia is not clear. It may be secondary to AV sonia blocking agents versus AV sonia dysfunction. Patient had an episode of significant bradycardia At approximately 1 AM that lasted approximately 20 seconds. The rhythm was sinus. He also had another event at approximately 5:19 am that lasted only several seconds. He has been off of the diltiazem for approximately 24 hours. Recommend he remain in the hospital for 1 more night for telemetry. If he does not have any events then he will be discharged to home. However, if he has significant events, plan is to call his commission for the blind director Dr. Mcnair and discuss the events. Discussed with patient's commission for the blind director at [facility] (Dr. Mcnair). All AV sonia blocking agents have been discontinued. If patient continues to have episodes of bradycardia/syncope after discontinuing all AV sonia blocking agents, he most likely will need a pacemaker. Discussed above with patient. (2) Syncope Assessment/Plan: Syncope most likely related to bradycardia. Continue to monitor on telemetry. (3) Hypomagesemia Assessment/Plan: Replacement - Current Meds Current Meds: Current Medications Generic Name Dose Route Start Last Admin Trade Name Freq PRN Reason Stop Dose Admin Magnesium Oxide 400 mg 02/11/24 21:00 02/12/24 20:14 Magnesium Oxide 400 Mg Tablet PO 02/14/24 20:59 400 mg BID SAL Administration Sodium Chloride 10 ml 02/10/24 09:00 02/12/24 16:23 Sodium Chloride Flush 0.9% 10 Ml Syringe IVP 10 ml 0100,0900,1700 SAL Administration - Lab Result Fish Bone Diagrams: 02/10/24 05:25 02/11/24 04:43 - Additional Planning My Orders: My Active Orders 02/11/24 21:00 Magnesium Oxide [Mag Ox] 400 mg PO BID Subjective - Subjective Patient Reports: Other (Alert. Denies syncope overnight. Denies chest pain shortness of breath and abdominal pain. Patient did have several episodes of bradycardia during the night.) Objective Vital Signs: Vital Signs - 24 hr 02/12/24 02/12/24 02/12/24 01:00 04:55 08:40 Temperature 36.5 C 36.6 C 36.6 C Heart Rate [ 63 Brachial] Heart Rate [ 67 63 Monitoring electrodes] Respiratory 20 18 18 Rate Blood Pressure 125/84 H 126/79 145/80 H [Right Brachial artery] O2 Saturation 95 97 96 02/12/24 02/12/24 02/12/24 12:29 15:37 20:04 Temperature 36.8 C 37.1 C 37.0 C Heart Rate [ 71 71 67 Brachial] Heart Rate [ Monitoring electrodes] Respiratory 18 16 16 Rate Blood Pressure 131/80 H 151/93 H 114/73 [Right Brachial artery] O2 Saturation 97 96 97 Oxygen O2 Source Room air I&O (Last 24 Hrs): Intake and Output Totals x24h 02/10/24 02/11/24 02/12/24 23:59 23:59 23:59 Intake Total 3000 2269 2059 Output Total 175 Balance 2825 2269 2059 General: Alert, Oriented x3, No acute distress HEENT: Atraumatic Neck: Supple, No JVD Neuro: Alert, Non Focal Cardiovascular: Other (Positive S1-S2 no extra heart sounds.) Respiratory: Other (Good air exchange in all lung brothers no wheezing no crackles.) Abdomen: Other (Positive bowel sounds soft nontender nondistended) Extremities: No cyanosis, No edema Skin: No rashes - Results Results: Laboratory Results WBC 8.5 x10^3/uL (4.8-10.8) 02/10/24 05:25 RBC 3.86 10^6/uL (4.70-6.10) L 02/10/24 05:25 Hgb 13.8 g/dL (14.0-18.0) L 02/10/24 05:25 Hct 40.7 % (42.0-52.0) L 02/10/24 05:25 MCV 105.4 fL (80.0-94.0) H 02/10/24 05:25 MCH 35.8 pg (27.0-31.0) H 02/10/24 05:25 MCHC 33.9 g/dL (32.0-36.0) 02/10/24 05:25 RDW 13.5 % (12.0-15.0) 02/10/24 05:25 Plt Count 147 10^3/uL (130-450) 02/10/24 05:25 MPV 10.0 fL (7.4-11.4) 02/10/24 05:25 Neut # (Auto) 4.2 10^3/uL (1.5-6.6) 02/10/24 05:25 Lymph # (Auto) 3.3 10^3/uL (1.5-3.5) 02/10/24 05:25 [place] # (Auto) 0.8 10^3/uL (0.0-1.0) 02/10/24 05:25 Eos # (Auto) 0.1 10^3/uL (0.0-0.7) 02/10/24 05:25 Baso # (Auto) 0.1 10^3/uL (0.0-0.1) 02/10/24 05:25 Absolute Nucleated RBC 0.00 x10^3/uL 02/10/24 05:25 Nucleated RBC % 0.0 /100WBC 02/10/24 05:25 Sodium 136 mmol/L (135-145) 02/11/24 04:43 Potassium 4.1 mmol/L (3.5-4.5) 02/11/24 04:43 Chloride 109 mmol/L (101-111) 02/11/24 04:43 Carbon Dioxide 20 mmol/L (21-32) L 02/11/24 04:43 Anion Gap 7.0 (6-13) 02/11/24 04:43 BUN 11 mg/dL (6-20) 02/11/24 04:43 Creatinine 0.6 mg/dL (0.6-1.3) 02/11/24 04:43 Estimated GFR (MDRD) 135 (>89) 02/11/24 04:43 Glucose 107 mg/dL (74-104) H 02/11/24 04:43 Calcium 9.2 mg/dL (8.5-10.3) 02/11/24 04:43 Phosphorus 3.0 mg/dL (2.5-5.0) 02/11/24 04:43 Magnesium 1.6 mg/dL (1.7-2.3) L 02/11/24 04:43 Total Bilirubin 0.8 mg/dL (0.2-1.0) 02/10/24 05:25 AST 20 IU/L (10-42) 02/10/24 05:25 ALT 14 IU/L (10-60) 02/10/24 05:25 Alkaline Phosphatase 55 IU/L (42-121) 02/10/24 05:25 Troponin I High Sens 3.7 ng/L (2.3-19.7) 02/11/24 04:43 Total Protein 6.1 g/dL (6.4-8.9) L 02/10/24 05:25 Albumin 3.5 g/dL (3.2-5.5) 02/10/24 05:25 Globulin 2.6 g/dL (2.1-4.2) 02/10/24 05:25 Albumin/Globulin Ratio 1.3 (1.0-2.2) 02/10/24 05:25 Triglycerides 118 mg/dL (48-352) 02/10/24 01:24 Cholesterol 231 mg/dL (-200) H 02/10/24 01:24 LDL Cholesterol, Calc 163 mg/dL (-129) H 02/10/24 01:24 VLDL Cholesterol 24 mg/dL 02/10/24 01:24 HDL Cholesterol 44 mg/dL (60-) L 02/10/24 01:24 LDL/HDL Ratio 3.7 (<3.6) 02/10/24 01:24 Cholesterol/HDL Ratio 5.3 (<5.0) 02/10/24 01:24 Lipase 32 U/L (11-82) 02/09/24 21:35 Sepsis Event Note (H) - Evaluation Current Stage of Sepsis: Ruled out
[2024-02-13 05:53] LABS: CALCIUM 9.7 mg/dL (8.5-10.3); CREATININE 0.8 mg/dL (0.6-1.3); MAGNESIUM 1.8 mg/dL (1.7-2.3); PHOSPHORUS 3.7 mg/dL (2.5-5.0); POTASSIUM 3.9 mmol/L (3.5-4.5)
--- NOTE | 2024-02-13 07:54 | DISCHARGE SUMMARY ---
Discharge Summary Admit Date: 02/10/24 Discharge Date: 02/13/24 Discharging Provider: Malcom Henderson MD Code Status: Attempt Resuscitation Discharge Disposition: 01 Home, Self Care Discharge Facility Name: [facility] - DIAGNOSES Admission Diagnoses: (1) Head injury (2) Syncope Discharge Diagnoses with Status of Each Condition: (1) Bradycardia (2) Syncope (3) Hypomagesemia - HPI History of Present Illness: History of Present Illness per Dr. Jasmine's history and physical: Patient is a 68-year-old male with a history of atrial fibrillation presenting for evaluation of a syncopal episode. Patient states his evening he was walking in the hallway towards his laundry room and started to feel hot like a hot flash and went to take off his flannel shirt and get up in the laundry room. He then was turning around when he had a reported syncopal episode.The syncopal episode was not witnessed by anyone at home but he is concerned that he may have been out for an hour due to last remembering the start of a TV show and then waking up in the show was almost over. He did hit his head. He does not take a blood thinner. He does have a history of atrial fibrillation but had an ablation done for 5 years ago and has been in sinus rhythm since. He follows with a fisher in [place] and had a cardiac catheterization in June which did not show any Vessel disease requiring stenting. 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 Alanis was admitted with a status of observation. He was placed on telemetry. He reports he had an cardiac ablation in approximately [address] Mcnair at [facility]. Upon admission, his metoprolol was discontinued and he continued on diltiazem CD1 120 mg daily. The patient continued to have several episodes of bradycardia with a heart rate in the 20-30/min range for brief periods of time. The rhythm during these events were sinus rhythm. The diltiazem was discontinued and the patient remained on telemetry. During the 24-hour period after discontinuing the diltiazem the patient the patient continued to have some episodes of bradycardia. During the next 24 hours when the medicine was completely out of his system he had no events of bradycardia. The patient is hemodynamically stable and is a safe for discharge. His case was discussed with Dr. Mcnair and [facility] and plan is for patient to follow-up with Dr. Mcnair. - ALLERGIES Allergies/Adverse Reactions: Allergies Allergy/AdvReac Type Severity Reaction Status Date / Time No Known Drug Allergies Allergy Verified 02/09/24 21:20 - MEDICATIONS Home Medications: Ambulatory Orders Medication Instructions Recorded Confirmed Aspirin EC [Ecotrin] 81 mg PO DAILY 02/10/24 02/10/24 Atorvastatin [Lipitor] 40 mg PO DAILY 02/10/24 02/10/24 - PHYSICAL EXAM AT DISCHARGE General Appearance: positive: No acute distress, Alert Eyes Bilateral: positive: No lid inflammation, Conjunctivae nml Respiratory: positive: No respiratory distress, Breath sounds nml Cardiovascular: positive: Regular rate & rhythm, No murmur, No gallop Abdomen: positive: Non-tender, Nml bowel sounds, No distention Skin: positive: No rash Neurologic/Psychiatric: positive: Oriented x3, Motor nml - LABS Result Diagrams: 02/10/24 05:25 02/13/24 05:15 - SEPSIS Current Stage of Sepsis: Ruled out - FOLLOW UP Follow Up: Please follow-up with Dr. Mcnair in 2 to 4 weeks. Please schedule a follow-up appointment with your primary care provider. - TIME SPENT Time Spent in Discharge (Minutes): 28
--- NOTE | 2024-02-13 07:54 | Discharge Plan ---
Discharge Plan Condition: Stable Diet: Regular Activity Restrictions: No Restrictions Shower Restrictions: No Driving Restrictions: No Instruction Topics: Bradycardia Health Concerns: History of Present Illness per Dr. Jasmine's history and physical: Patient is a 68-year-old male with a history of atrial fibrillation presenting for evaluation of a syncopal episode. Patient states his evening he was walking in the hallway towards his laundry room and started to feel hot like a hot flash and went to take off his flannel shirt and get up in the laundry room. He then was turning around when he had a reported syncopal episode.The syncopal episode was not witnessed by anyone at home but he is concerned that he may have been out for an hour due to last remembering the start of a TV show and then waking up in the show was almost over. He did hit his head. He does not take a blood thinner. He does have a history of atrial fibrillation but had an ablation done for 5 years ago and has been in sinus rhythm since. He follows with a whiteprinting machine operator in [place] and had a cardiac catheterization in June which did not show any Vessel disease requiring stenting. 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 Alanis was admitted with a status of observation. He was placed on telemetry. He reports he had an cardiac ablation in approximately [address] Mcnair at [facility]. Upon admission, his metoprolol was discontinued and he continued on diltiazem CD1 120 mg daily. The patient continued to have several episodes of bradycardia with a heart rate in the 20-30/min range for brief periods of time. The rhythm during these events were sinus rhythm. The diltiazem was discontinued and the patient remained on telemetry. During the 24-hour period after discontinuing the diltiazem the patient the patient continued to have some episodes of bradycardia. During the next 24 hours when the medicine was completely out of his system he had no events of bradycardia. The patient is hemodynamically stable and is a safe for discharge. His case was discussed with Dr. Mcnair and [facility] and plan is for patient to follow-up with Dr. Mcnair. Plan of Treatment: 1. Please take all medications as prescribed. 2. Please follow-up with Dr. Mcnair in the next 2 to 4 weeks. Please discuss home monitoring for bradycardia with Dr. Mcnair. 3. Please follow-up with your primary care provider Care Goals: Goal of care is to not have any more syncopal events or significant bradycardia. If syncope or bradycardia recurs, patient may require pacemaker placement. Assessment: (1) Bradycardia Assessment/Plan: Etiology of bradycardia is not clear. It may be secondary to AV sonia blocking agents versus AV sonia dysfunction. Patient had an episode of significant bradycardia At approximately 1 AM that lasted approximately 20 seconds. The rhythm was sinus. He also had another event at approximately 5:19 am that lasted only several seconds. He has been off of the diltiazem for approximately 24 hours. Recommend he remain in the hospital for 1 more night for telemetry. If he does not have any events then he will be discharged to home. However, if he has significant events, plan is to call his powerhouse mechanic apprentice Dr. Mcnair and discuss the events. Discussed with patient's powerhouse mechanic apprentice at [facility] (Dr. Mcnair). All AV sonia blocking agents have been discontinued. If patient continues to have episodes of bradycardia/syncope after discontinuing all AV sonia blocking agents, he most likely will need a pacemaker. Discussed above with patient. (2) Syncope Assessment/Plan: Syncope most likely related to bradycardia. After discontinuing diltiazem patient had several events of brief bradycardia during the 24 hours after discontinuing the medication. Over the next 24 hours with the medication should be completely out of the patient's system the patient had no events. (3) Hypomagesemia Assessment/Plan: Resolved No Smoking: If you smoke, Please STOP! Call for help. Follow-up with: LAILA BENITEZ MD [Primary Care Provider] -
[2024-02-13 08:29] VITALS: BP 125/74; O2SAT 98
== END 2024-02-13 10:15 | disposition home or self-care (01) | DRG 309 ==
LOC: EDUNIT# → ED 21:08 → MS2 02-10 01:05 → OBSVTOIN 02-12 12:30
PROVIDERS: ADMIT Internal Medicine; ATTEND Internal Medicine
DX: R00.1 Bradycardia, unspecified (principal); S06.9X9A Unspecified intracranial injury with loss of consciousness of unspecified duration, initial encounter; S09.90XA Unspecified injury of head, initial encounter; R55 Syncope and collapse; E83.42 Hypomagnesemia; I65.23 Occlusion and stenosis of bilateral carotid arteries; W19.XXXA Unspecified fall, initial encounter
CPT/HCPCS: 36415; 70450; 71045; 80048; 80053; 80061; 83690; 83735; 84100; 84484; 85025; 93005; 93307; 93880; 96365; 96375; 99285; A9270; G0378; 83721